=== PATIENT | female | born 1955 | race Caucasian/White ===

== ENCOUNTER 2020-08-29 15:34 | Outpatient (REF) | payer MEDICARE, OTHER, SELFPAY ==
[2020-08-29 18:34] LABS: Vitamin D 25-OH Total 49.6 ng/mL (>30)
== END 2020-08-29 15:35 | disposition home or self-care (01) ==
LOC: HO.MANLDS 15:34
PROVIDERS: PCP Physician Assistant; Visit Provider Physician Assistant
DX: E55.9 Vitamin D deficiency, unspecified (principal)
CPT/HCPCS: 82306

== ENCOUNTER 2021-03-27 08:05 | Outpatient (REF) | payer MEDICARE, OTHER, SELFPAY ==
[2021-03-27 11:32] LABS: MANUAL DIFF FLAG NO
[2021-03-27 11:56] LABS: Basophils Percent Auto 0.7 % (0-2); Eosinophils Absolute Auto 0.1 X10*3/uL (0.0-0.4); Eosinophils Percent Auto 1.8 % (0-4); Hematocrit 45.7 % (37-47); Hemoglobin 14.8 g/dl (12.0-16.0); Imm Gran Abs Auto 0.01 X10*3/uL (0.00-0.03); Imm Gran Pct Auto 0.2 % (0.0-0.4); Lymphocytes Absolute Auto 2.7 X10*3/uL (1.2-4.9); Lymphocytes Percent Auto 44.7 % (20-40); Mean Corpuscular HGB Conc 32.4 g/dl (31.0-35.0); Mean Corpuscular Hemoglobin 27.8 pg (27.0-33.0); Mean Corpuscular Volume 85.7 fL (80-98); Mean Platelet Volume 10.2 fL (9.4-12.3); Monocytes Absolute Auto 0.4 X10*3/uL (0.1-1.2); Monocytes Percent Auto 6.3 % (2-11); Neutrophils Absolute Auto 2.8 X10*3/uL (2.0-8.3); Neutrophils Percent Auto 46.3 % (45-73); Platelet Count 250 X10*3/uL (160-400); Red Blood Count 5.33 X10*6/uL (4.20-5.50); Red Cell Distribution Width 13.6 % (11.0-16.0); White Blood Count 6.1 X10*3/uL (4.8-10.8)
[2021-03-27 12:15] LABS: Alanine Aminotransferase 25 U/L (0-31); Albumin Level 4.4 g/dL (3.5-5.0); Alkaline Phosphatase 71 U/L (39-117); Anion Gap 12 (12-20); Aspartate Amino Transferase 28 U/L (5-31); Bilirubin Total 0.4 mg/dL (0.0-1.0); Blood Urea Nitrogen 11 mg/dL (9-16); Calcium 9.2 mg/dL (8.4-10.2); Carbon Dioxide 26 mmol/L (22-29); Chloride 105 mmol/L (96-108); Cholesterol 160 mg/dL; Estimated Glomerular Filt Rate > 60; Glucose Fasting 88 mg/dL (60-99); HDL Cholesterol 51 mg/dL; LDL Cholesterol Calculated 81 mg/dl; Potassium 4.2 mmol/L (3.3-5.1); Sodium 139 mmol/L (135-145); Total Protein 6.8 g/dL (6.5-8.0); Triglycerides 143 mg/dL
[2021-03-27 12:31] LABS: Estimated Average Glucose 103 mg/dL; Hemoglobin A1c % 5.2 %
== END 2021-03-27 08:06 | disposition home or self-care (01) ==
LOC: HO.MANLDS 08:05
PROVIDERS: PCP Internal Medicine; Visit Provider Physician Assistant
DX: Z00.00 Encounter for general adult medical examination without abnormal findings (principal); Z13.6 Encounter for screening for cardiovascular disorders
CPT/HCPCS: 36415; 80053; 80061; 83036; 85025

== ENCOUNTER 2021-09-08 09:32 | Outpatient (REF) | payer MEDICARE, OTHER, SELFPAY ==
[2021-09-08 11:08] LABS: MANUAL DIFF FLAG NO
[2021-09-08 11:12] LABS: Basophils Percent Auto 0.6 % (0-2); Eosinophils Absolute Auto 0.2 X10*3/uL (0.0-0.4); Eosinophils Percent Auto 2.8 % (0-4); Hematocrit 43.4 % (37-47); Hemoglobin 14.4 g/dl (12.0-16.0); Imm Gran Abs Auto 0.01 X10*3/uL (0.00-0.03); Imm Gran Pct Auto 0.2 % (0.0-0.4); Lymphocytes Absolute Auto 2.3 X10*3/uL (1.2-4.9); Lymphocytes Percent Auto 42.3 % (20-40); Mean Corpuscular HGB Conc 33.2 g/dl (31.0-35.0); Mean Corpuscular Hemoglobin 28.5 pg (27.0-33.0); Mean Corpuscular Volume 85.9 fL (80-98); Mean Platelet Volume 10.3 fL (9.4-12.3); Monocytes Absolute Auto 0.3 X10*3/uL (0.1-1.2); Neutrophils Absolute Auto 2.6 X10*3/uL (2.0-8.3); Neutrophils Percent Auto 48.1 % (45-73); Platelet Count 249 X10*3/uL (160-400); Red Blood Count 5.05 X10*6/uL (4.20-5.50); Red Cell Distribution Width 13.3 % (11.0-16.0); White Blood Count 5.3 X10*3/uL (4.8-10.8)
[2021-09-08 11:23] LABS: Estimated Average Glucose 100 mg/dL; Hemoglobin A1c % 5.1 %
[2021-09-08 11:42] LABS: Alanine Aminotransferase 29 U/L (0-31); Albumin Level 4.3 g/dL (3.5-5.0); Alkaline Phosphatase 80 U/L (39-117); Anion Gap 12 (12-20); Aspartate Amino Transferase 34 U/L (5-31); Bilirubin Total 0.6 mg/dL (0.0-1.0); Blood Urea Nitrogen 8 mg/dL (9-16); Calcium 9.4 mg/dL (8.4-10.2); Carbon Dioxide 26 mmol/L (22-29); Chloride 106 mmol/L (96-108); Cholesterol 166 mg/dL; Estimated Glomerular Filt Rate > 60; Glucose Fasting 84 mg/dL (60-99); HDL Cholesterol 43 mg/dL; LDL Cholesterol Calculated 86 mg/dl; Potassium 4.3 mmol/L (3.3-5.1); Sodium 140 mmol/L (135-145); Total Protein 6.7 g/dL (6.5-8.0); Triglycerides 189 mg/dL
== END 2021-09-08 09:33 | disposition home or self-care (01) ==
LOC: HO.MANLDS 09:32
PROVIDERS: PCP Physician Assistant; Visit Provider Physician Assistant
DX: E78.2 Mixed hyperlipidemia (principal)
CPT/HCPCS: 36415; 80053; 80061; 83036; 85025

== ENCOUNTER 2022-03-09 07:47 | Outpatient (REF) | payer MEDICARE, OTHER, SELFPAY ==
[2022-03-09 10:52] LABS: Imm Gran Abs Auto 0.01 X10*3/uL (0.00-0.03); Imm Gran Pct Auto 0.1 % (0.0-0.4); MANUAL DIFF FLAG SCAN; Mean Corpuscular Volume 85.7 fL (80.0-98.0); Monocytes Percent Auto 6.1 % (2-11); PLT CLUMP 1; Red Cell Distribution Width 13.2 % (11.0-16.0); SCAN SMEAR FLAG 1
[2022-03-09 10:54] LABS: Basophils Percent Auto 0.3 % (0-2); Eosinophils Absolute Auto 0.2 X10*3/uL (0.0-0.4); Eosinophils Percent Auto 2.4 % (0-4); Hematocrit 46.1 % (37.0-47.0); Hemoglobin 14.9 g/dl (12.0-16.0); Lymphocytes Absolute Auto 2.3 X10*3/uL (1.2-4.9); Lymphocytes Percent Auto 30.8 % (20-40); Mean Corpuscular HGB Conc 32.3 g/dl (31.0-35.0); Mean Corpuscular Hemoglobin 27.7 pg (27.0-33.0); Monocytes Absolute Auto 0.5 X10*3/uL (0.1-1.2); Neutrophils Absolute Auto 4.5 x10*3/uL (2.0-8.3); Neutrophils Percent Auto 60.3 % (45-73); Red Blood Count 5.38 X10*6/uL (4.20-5.50)
[2022-03-09 10:59] LABS: Estimated Average Glucose 100 mg/dL; Hemoglobin A1c % 5.1 %
[2022-03-09 11:23] LABS: Alanine Aminotransferase 24 U/L (0-31); Albumin Level 4.2 g/dL (3.5-5.0); Alkaline Phosphatase 81 U/L (39-117); Anion Gap 13 (12-20); Aspartate Amino Transferase 26 U/L (5-31); Bilirubin Total 0.9 mg/dL (0.0-1.0); Blood Urea Nitrogen 9 mg/dL (9-16); Carbon Dioxide 26 mmol/L (22-29); Chloride 105 mmol/L (96-108); Cholesterol 162 mg/dL; Estimated Glomerular Filt Rate > 60; Glucose Fasting 77 mg/dL (60-99); HDL Cholesterol 47 mg/dL; LDL Cholesterol Calculated 85 mg/dl; Potassium 4.1 mmol/L (3.3-5.1); Sodium 140 mmol/L (135-145); Total Protein 6.7 g/dL (6.5-8.0); Triglycerides 152 mg/dL
[2022-03-09 11:28] LABS: Platelet Count 220 X10*3/uL (160-400); SLIDE REVIEW VERIFIED; White Blood Count 7.5 X10*3/uL (4.8-10.8)
== END 2022-03-09 07:48 | disposition home or self-care (01) ==
LOC: HO.MANLDS 07:47
PROVIDERS: PCP Physician Assistant; Visit Provider Physician Assistant
DX: E78.2 Mixed hyperlipidemia (principal)
CPT/HCPCS: 36415; 80053; 80061; 83036; 85025

== ENCOUNTER 2022-09-08 07:39 | Outpatient (REF) | payer MEDICARE, OTHER, SELFPAY ==
[2022-09-08 11:27] LABS: MANUAL DIFF FLAG NO
[2022-09-08 11:38] LABS: Basophils Percent Auto 0.6 % (0-2); Eosinophils Absolute Auto 0.2 X10*3/uL (0.0-0.4); Eosinophils Percent Auto 2.4 % (0-4); Hematocrit 45.8 % (37.0-47.0); Hemoglobin 15.2 g/dl (12.0-16.0); Imm Gran Abs Auto 0.01 X10*3/uL (0.00-0.03); Imm Gran Pct Auto 0.2 % (0.0-0.4); Lymphocytes Absolute Auto 2.6 X10*3/uL (1.2-4.9); Lymphocytes Percent Auto 41.1 % (20-40); Mean Corpuscular HGB Conc 33.2 g/dl (31.0-35.0); Mean Corpuscular Hemoglobin 28.1 pg (27.0-33.0); Mean Corpuscular Volume 84.8 fL (80.0-98.0); Mean Platelet Volume 10.1 fL (9.4-12.3); Monocytes Absolute Auto 0.4 X10*3/uL (0.1-1.2); Monocytes Percent Auto 5.8 % (2-11); Neutrophils Absolute Auto 3.1 x10*3/uL (2.0-8.3); Neutrophils Percent Auto 49.9 % (45-73); Platelet Count 249 X10*3/uL (160-400); Red Cell Distribution Width 13.2 % (11.0-16.0); White Blood Count 6.3 X10*3/uL (4.8-10.8)
[2022-09-08 11:45] LABS: Estimated Average Glucose 103 mg/dL; Hemoglobin A1c % 5.2 %
[2022-09-08 11:52] LABS: Alanine Aminotransferase 28 U/L (0-31); Albumin Level 4.4 g/dL (3.5-5.0); Alkaline Phosphatase 74 U/L (39-117); Anion Gap 14 (12-20); Aspartate Amino Transferase 32 U/L (5-31); Bilirubin Total 0.7 mg/dL (0.0-1.0); Blood Urea Nitrogen 11 mg/dL (9-16); Calcium 9.2 mg/dL (8.4-10.2); Carbon Dioxide 27 mmol/L (22-29); Chloride 103 mmol/L (96-108); Cholesterol 190 mg/dL; Estimated Glomerular Filt Rate > 60; Glucose Random 83 mg/dL (60-115); HDL Cholesterol 53 mg/dL; LDL Cholesterol Calculated 102 mg/dl; Sodium 140 mmol/L (135-145); Triglycerides 177 mg/dL
== END 2022-09-08 07:40 | disposition home or self-care (01) ==
LOC: HO.MANLDS 07:39
PROVIDERS: Visit Provider Physician Assistant
DX: Z13.89 Encounter for screening for other disorder (principal)
CPT/HCPCS: 36415; 80053; 80061; 83036; 85025

== ENCOUNTER → 2022-10-07 07:26 | Outpatient (REF) | payer MEDICARE, SELFPAY ==
--- NOTE | 2022-10-07 07:30 | CA_ITS ---
Transthoracic Echocardiogram Patient (Last, First, Middle): Cindy Matthews T Gender: Female Date of : 1955 Age: 67 Procedure Date: 10/07/2022 Procedure Type: Transthoracic Echocardiogram Location: OP Height: 154.94 cm Weight: 81.19 kg BSA: 1.80 m2 Heart Rate: 73 bpm BP: 120 / 75 mmHg Reconciling Clerk: TUTU Rodriguez MD: Yuliet KOLB Filing Machine Operator: Gonzalez Cm MD Symptoms: R00.2 PALPITATIONS Study Quality: Fair ECG Rhythm: Sinus Conclusions: - 1. Normal measured LV systolic function with LVEF of 55-60% with grade 1 diastolic dysfunction 2. Normal cardiac valvular Doppler 3. No gross pericardial effusion Findings Left Ventricle Normal left ventricular size, thickness, and systolic function. The visually estimated ejection fraction is between 55-60%. Spectral Doppler is indicative of an impaired relaxation filling pattern. E/E prime ratio is <8, consistent with normal filling pressures. Evidence suggests grade I (mild) diastolic dysfunction. Peak GLS is -13.6%, which is reduced. Right Ventricle Normal right ventricular cavity size and systolic function. Atria The left atrium is normal in size. Interatrial shunt cannot be excluded. The right atrium was not well visualized. Aortic Valve The aortic valve structure and function is likely normal. There is no aortic valve stenosis. There is no aortic valve regurgitation. Mitral Valve Likely normal mitral valve structure and function. There is trace mitral valve regurgitation. There is no mitral valve stenosis. Pulmonic Valve The pulmonic valve was not well visualized. Tricuspid Valve Likely normal tricuspid valve structure and function. Tricuspid regurgitation envelope is inadequate for calculation of right ventricular systolic pressure. Normal right atrial pressure. Great Vessels All visible segments of the aorta are normal in size. The pulmonary artery was not well visualized. Venous The inferior vena cava is normal in size and collapses greater than 50% with inspiration. Pericardium/Pleural There is no evidence of pericardial effusion. Prior Study Comparison No prior study available for comparison. Measurements 2D Linear Measurements IVSd: 1.59 0.6-0.9/0.6-1.0 cm LVIDd: 2.66 3.9-5.3/4.2-5.9 cm LVIDd Index: 1.48 2.4-3.2/2.2-3.1 cm/m2 LVIDs: 2.20 2.0-3.6 cm LVPWd: 1.30 0.7-1.1 cm LA Diam: 3.40 2.7-3.8/3.0-4.0 cm LAIDs Index: 1.89 1.5-2.3 cm/m2 LV Mass: 158.22 67-162/88-224 g LV Mass Index: 87.90 43-95/49-115 g/m2 LVOT Diam: 1.80 3.0+(-)1.3 cm 2D Systolic Function EF 4C: 52.00 >55% EF 2C: 58.40 >55% EF BiP: 56.00 >55% Mitral Valve MV Pk E: 0.67 MV PK A: 0.66 MV Decel Time: 262.00 E/A: 1.00 E'Lateral: 8.05 E'Medial: 5.33 E/E' Med: 12.60 E/E' Lat: 8.30 PHT: 77.00 MVA PHT: 2.86 Decel Garvin: 2.55 Aortic Valve AoV Pk Fabrice: 1.16 AoV Mn Fabrice: 0.84 AoV VTI: 0.26 AoV Pk Grad: 5.00 Aov Mn Grad: 3.00 NORAH Cont.VTI: 1.96 LVOT LVOT Pk Fabrice: 1.01 LVOT Mn Fabrice: 0.66 LVOT VTI: 0.20 LVOT Pk Grad: 4.00 LVOT Mn Grad: 2.00 LVOT Diam: 1.80 LVOT Area: 2.54 Diastolic Function MV Pk E: 0.67 MV Pk A: 0.66 E/A: 1.00 E'Medial: 5.33 E/E' Med: 12.60 E' Laterial: 8.05 E/E' Lat: 8.30 Right Ventricle TAPSE (mm): 19.10 TVS' Fabrice: 10.30 Tricuspid Valve RA Press: 3.00 Great Vessels Aorta Sinus of Valsalva: 3.20 2.0-3.5 cm Ao Asc: 2.60 2.1-3.4 cm Pulmonary Valve PV Pk Fabrice: 1.15 Peak PV Grad: 5.00 Updated in Other Vendor System with Status of Final Gonzalez Cm MD electronically signed on 10/08/2022 1:06:41 PM with status of Final
== END ==
LOC: HO.CARD 07:26
PROVIDERS: PCP Internal Medicine; Visit Provider Physician Assistant
DX: R00.2 Palpitations (principal)
CPT/HCPCS: 93306; 93356

== ENCOUNTER 2023-03-15 08:51 | Outpatient (REF) | payer MEDICARE, SELFPAY ==
[2023-03-15 13:27] LABS: Cholesterol 182 mg/dL; HDL Cholesterol 53 mg/dL; LDL Cholesterol Calculated 101 mg/dl; Triglycerides 143 mg/dL
== END 2023-03-15 08:52 | disposition home or self-care (01) ==
LOC: HO.MANLDS 08:51
PROVIDERS: Visit Provider Physician Assistant
DX: E78.2 Mixed hyperlipidemia (principal)
CPT/HCPCS: 36415; 80061

== ENCOUNTER 2023-09-12 07:56 | Outpatient (REF) | payer MEDICARE, SELFPAY ==
[2023-09-12 13:20] LABS: MANUAL DIFF FLAG NO
[2023-09-12 13:42] LABS: Basophils Percent Auto 0.4 % (0-2); Eosinophils Absolute Auto 0.1 X10*3/uL (0.0-0.4); Hematocrit 45.7 % (37.0-47.0); Imm Gran Abs Auto 0.07 X10*3/uL (0.00-0.03); Imm Gran Pct Auto 0.7 % (0.0-0.4); Lymphocytes Absolute Auto 4.6 X10*3/uL (1.2-4.9); Lymphocytes Percent Auto 43.2 % (20-40); Mean Corpuscular HGB Conc 32.8 g/dl (31.0-35.0); Mean Corpuscular Hemoglobin 28.4 pg (27.0-33.0); Mean Corpuscular Volume 86.4 fL (80.0-98.0); Monocytes Absolute Auto 0.8 X10*3/uL (0.1-1.2); Monocytes Percent Auto 7.5 % (2-11); Neutrophils Percent Auto 47.2 % (45-73); Platelet Count 315 X10*3/uL (160-400); Red Blood Count 5.29 X10*6/uL (4.20-5.50); Red Cell Distribution Width 12.7 % (11.0-16.0); White Blood Count 10.7 X10*3/uL (4.8-10.8)
[2023-09-12 14:01] LABS: Cholesterol 138 mg/dL (<200); HDL Cholesterol 46 mg/dL (>40); LDL Cholesterol Calculated 69 mg/dL (<100); Triglycerides 118 mg/dL (<150)
[2023-09-12 14:09] LABS: Alanine Aminotransferase 21 U/L (0-31); Alkaline Phosphatase 65 U/L (39-117); Anion Gap 13 (12-20); Aspartate Amino Transferase 19 U/L (5-31); Bilirubin Total 0.3 mg/dL (0.0-1.0); Blood Urea Nitrogen 14 mg/dL (9-16); Calcium 9.3 mg/dL (8.4-10.2); Carbon Dioxide 28 mmol/L (22-29); Chloride 103 mmol/L (96-108); Estimated Glomerular Filt Rate > 60; Glucose Random 86 mg/dL (60-115); Potassium 4.3 mmol/L (3.3-5.1); Sodium 140 mmol/L (135-145); Total Protein 6.3 g/dL (6.5-8.0)
[2023-09-12 14:27] LABS: Free T4 (Free Thyroxine) 1.02 ng/dL (0.71-1.85)
== END 2023-09-12 07:57 | disposition home or self-care (01) ==
LOC: HO.MANLDS 07:56
PROVIDERS: Visit Provider Physician Assistant
DX: Z00.00 Encounter for general adult medical examination without abnormal findings (principal); E78.2 Mixed hyperlipidemia
CPT/HCPCS: 36415; 80053; 80061; 84439; 84443; 85025

== ENCOUNTER 2024-03-12 07:32 | Outpatient (REF) | payer MEDICARE, SELFPAY ==
[2024-03-12 13:30] LABS: MANUAL DIFF FLAG NO
[2024-03-12 13:59] LABS: Basophils Absolute Auto 0.1 X10*3/uL (0.0-0.2); Basophils Percent Auto 0.8 % (0-2); Eosinophils Absolute Auto 0.1 X10*3/uL (0.0-0.4); Eosinophils Percent Auto 2.3 % (0-4); Hematocrit 46.2 % (37.0-47.0); Hemoglobin 15.2 g/dl (12.0-16.0); Imm Gran Abs Auto 0.01 X10*3/uL (0.00-0.03); Imm Gran Pct Auto 0.2 % (0.0-0.4); Lymphocytes Absolute Auto 2.6 X10*3/uL (1.2-4.9); Mean Corpuscular HGB Conc 32.9 g/dl (31.0-35.0); Mean Corpuscular Hemoglobin 28.3 pg (27.0-33.0); Mean Corpuscular Volume 85.9 fL (80.0-98.0); Mean Platelet Volume 10.4 fL (9.4-12.3); Monocytes Absolute Auto 0.3 X10*3/uL (0.1-1.2); Monocytes Percent Auto 5.7 % (2-11); Neutrophils Absolute Auto 2.9 x10*3/uL (2.0-8.3); Platelet Count 274 X10*3/uL (160-400); Red Blood Count 5.38 X10*6/uL (4.20-5.50); Red Cell Distribution Width 13.4 % (11.0-16.0)
[2024-03-12 14:24] LABS: Alanine Aminotransferase 22 U/L (0-31); Albumin Level 4.3 g/dL (3.5-5.0); Alkaline Phosphatase 67 U/L (39-117); Anion Gap 12 (12-20); Aspartate Amino Transferase 28 U/L (5-31); Bilirubin Total 0.6 mg/dL (0.0-1.0); Blood Urea Nitrogen 8 mg/dL (9-16); Calcium 9.8 mg/dL (8.4-10.2); Carbon Dioxide 27 mmol/L (22-29); Chloride 107 mmol/L (96-108); Cholesterol 160 mg/dL (<200); Estimated Glomerular Filt Rate > 60; Glucose Random 73 mg/dL (60-115); HDL Cholesterol 61 mg/dL (>40); LDL Cholesterol Calculated 84 mg/dL (<100); Potassium 4.2 mmol/L (3.3-5.1); Sodium 142 mmol/L (135-145); Total Protein 7.1 g/dL (6.5-8.0); Triglycerides 77 mg/dL (<150)
[2024-03-12 14:30] LABS: Free T4 (Free Thyroxine) 1.02 ng/dL (0.71-1.85); Thyroid Stimulating Hormone 3.28 uIU/mL (0.32-4.0); Vitamin D 25-OH Total 52.2 ng/mL (>30)
== END 2024-03-12 07:33 | disposition home or self-care (01) ==
LOC: HO.MANLDS 07:32
PROVIDERS: Visit Provider Physician Assistant
DX: Z00.00 Encounter for general adult medical examination without abnormal findings (principal); E78.2 Mixed hyperlipidemia
CPT/HCPCS: 36415; 80053; 80061; 82306; 84439; 84443; 85025

== ENCOUNTER 2024-09-14 08:34 | Outpatient (REF) | payer MEDICARE, SELFPAY ==
[2024-09-14 13:26] LABS: MANUAL DIFF FLAG NO
[2024-09-14 13:31] LABS: Basophils Percent Auto 0.6 % (0-2); Eosinophils Absolute Auto 0.2 X10*3/uL (0.0-0.4); Eosinophils Percent Auto 2.3 % (0-4); Hematocrit 46.5 % (37.0-47.0); Hemoglobin 15.1 g/dl (12.0-16.0); Imm Gran Abs Auto 0.01 X10*3/uL (0.00-0.03); Imm Gran Pct Auto 0.2 % (0.0-0.4); Lymphocytes Absolute Auto 2.8 X10*3/uL (1.2-4.9); Lymphocytes Percent Auto 44.1 % (20-40); Mean Corpuscular HGB Conc 32.5 g/dl (31.0-35.0); Mean Corpuscular Hemoglobin 28.7 pg (27.0-33.0); Mean Corpuscular Volume 88.4 fL (80.0-98.0); Mean Platelet Volume 10.3 fL (9.4-12.3); Monocytes Absolute Auto 0.5 X10*3/uL (0.1-1.2); Monocytes Percent Auto 7.3 % (2-11); Neutrophils Absolute Auto 2.9 x10*3/uL (2.0-8.3); Neutrophils Percent Auto 45.5 % (45-73); Platelet Count 253 X10*3/uL (160-400); Red Blood Count 5.26 X10*6/uL (4.20-5.50); Red Cell Distribution Width 13.2 % (11.0-16.0); White Blood Count 6.4 X10*3/uL (4.8-10.8)
[2024-09-14 14:20] LABS: Alanine Aminotransferase 32 U/L (0-31); Albumin Level 4.3 g/dL (3.5-5.0); Alkaline Phosphatase 73 U/L (39-117); Aspartate Amino Transferase 51 U/L (5-31); Bilirubin Total 0.6 mg/dL (0.0-1.0); Blood Urea Nitrogen 9 mg/dL (9-16); Cholesterol 169 mg/dL (<200); Estimated Glomerular Filt Rate > 60; Glucose Random 81 mg/dL (60-115); HDL Cholesterol 57 mg/dL (>40); LDL Cholesterol Calculated 84 mg/dL (<100); TSH reflex Free T4 2.54 uIU/mL (0.32-4.0); Total Protein 7.2 g/dL (6.5-8.0); Triglycerides 140 mg/dL (<150); Vitamin D 25-OH Total 128.3 ng/mL (>30)
[2024-09-14 14:35] LABS: Anion Gap 11 (12-20); Carbon Dioxide 25 mmol/L (22-29); Chloride 108 mmol/L (96-108); Sodium 140 mmol/L (135-145)
== END 2024-09-14 08:35 | disposition home or self-care (01) ==
LOC: HO.MANLDS 08:34
PROVIDERS: Visit Provider Physician Assistant
DX: Z00.00 Encounter for general adult medical examination without abnormal findings (principal); E78.2 Mixed hyperlipidemia
CPT/HCPCS: 36415; 80053; 80061; 82306; 84443; 85025

== ENCOUNTER 2025-03-19 08:46 | Outpatient (REF) | payer MEDICARE, SELFPAY ==
--- OUTSIDE RECORDS SUMMARY | 2025-03-19 09:15 | XMS_ITS | Data Portability ---
Author Organization [facility] Service Address [address] [place] [address] Assessment Encounter Date Assessment Date Assessment LastModified by Organization Details LastModified Time 09/13/2022 09/13/2022 The patient denies recent falls or recurrent falls. Denies instability, weakness, abnormal gait, or difficulties with movement. The patient wears correct, supportive shoes and is not otherwise severely visually impaired. The patient is full weight bearing and if using the assistance of a cane or walker feels supported and stable with the use of such devices. All medical conditions have been taken into account that may pose a risk for the patient for falls. Home radha, carpets and/or rugs do not pose a challenge for the patient. The patient has been educated about the use of vitamin D supplementation for bone health and prevention of hypotensive episodes that may increase risk for fall. All question and concerns were answered to the patient's satisfaction. [email or web address] Not available 09/13/2022 10:12:39 09/05/2023 09/05/2023 Patient agreed and verbally consents to this audio and video Telehealth appt via a secure platform The patient denies little pleasure in activities they find enjoyable, feeling depressed, difficulties sleeping, feeling tired or having little energy, change in appetite, feeling guilty, overwhelmed or unmotivated. The patient denies suicidal ideation, thoughts of hurting themselves or others. Their mood is appropriate, they show good judgement and clear understanding of the conversation. They are orientated to time, place and person. They are not expressing any concerning thoughts or actions that would need further investigation and treatment for mental health. [email or web address] Not available 09/05/2023 11:36:51 Plan of Treatment Reminders Order Date Submit Date Provider Last Modified By Organization Details Last Modified Time Details Appointments ANNUAL EXAM 2024 01:30P M KENNEDI PERERA Not available Not available Not available Lab None recorded. Referral None recorded. Procedures None recorded. Surgeries None recorded. Imaging CT, coronary calcium score 2022 023 [email or web address] [facility], [address] [facility], [place], [address], 09/20/2023 08:27:34 US, duplex, carotid artery 2021 022 [email or web address] Not available 09/14/2022 08:52:34 US, echocardi ogram 2021 022 [email or web address] Not available 09/14/2022 08:52:34 Medication Orders fluocinon karen 0.05 % topical ointment 2023 ANIA [facility], [address], [place], [place], [id number], 09/24/2024 13:44:40 famotidin e 20 mg tablet 2023 ANIA [facility], [address] [place] [address], [address], [place], [place], [id number], 09/24/2024 13:43:35 budesonid e 32 mcg/actua tion nasal spray 2022 023 ANIA Not available 09/16/2023 14:19:52 codeine 10 mg-guaife nesin 100 mg/5 mL oral liquid 2022 023 [email or web address] 8 Not available 09/16/2023 14:12:54 doxycycli ne hyclate 100 mg capsule 2022 023 [email or web address] 8 Not available 09/16/2023 14:13:04 prednison e 10 mg tablet 2022 023 [email or web address] 8 Not available 09/16/2023 14:13:13 Patient TargetsNo targets recorded. Patient InstructionsNo instructions recorded. Reason for Referral None Reported. Results Created Date Observation Date Name Description Value Unit Range Abnormal Flag Note LastModifiedBy Organization Detail LastModifiedTime 04/26/20 22 04/26/2022 MAMMO , swetha almeida, digit al, bilat eral No observ ation record ed. [email or web address] [facility] (Mammo) [address] [place], [address], 04/27/2022 10:27:29 09/22/20 22 09/22/2022 US, magdalena x, carot id arter y No observ ation record ed. [facility] [address] [facility] [address], [place], [address], 09/24/2022 16:10:18 10/08/20 22 10/07/2022 US, echoc ardio gram No observ ation record ed. [facility] Sched[facility] [address] [place], [address], 10/08/2022 13:58:54 10/26/20 22 10/25/2022 stres s echoc ardio gram with doppl er color flow (PROC ) No observ ation record ed. [facility] [address], [place], [address], 10/26/2022 11:20:55 12/17/19 23 11/25/2022 cecil r monit or No observ ation record ed. ayad Not Available 2022 10:49:24 09/29/20 23 09/29/2023 CT, coron yulisa calci um score No observ ation record ed. [facility] [address] [place], [address], 09/24/2024 13:57:43 09/13/20 24 09/13/2024 US, amador tsamuel No observ ation record ed. [facility] [address] [place], [address], 09/24/2024 13:57:43 09/13/2009/13/2024 MAMMO , diagn ostic , digit al, unila teral No observ ation record ed. [facility] (Breast Center) - Callback Orders Only [address] [place], [address], 09/24/2024 13:57:42 Result Notes None recorded. Problems Name Problem SNOMED Code Status Onset Date Resolution Date Notes Provider Name and Address Organization Details Recorded Time Hyperlip idemia 20326652 Completed 201708/21/2018February LAURA Griffin [address] [place], [address], [facility] 8 14:21:58 Abnormal liver function 39506052 Active 2017 Berenice linton [facility] 0 09:03:10 Reactive airway disease 62229623309 6 Active 2017 Berenice linton [facility] 0 09:03:10 Gastroes ophageal reflux disease 932876990 Completed 201708/21/2018 KENNEDI PERERA [address] [place] [address], [address], [facility] 4 13:41:39 Gastroes ophageal reflux disease without esophagi tis 310968397 Active 2017 Berenice linton [facility] 0 09:03:10 Mixed hyperlip idemia 695015902 Active 2017 Berenice linton [facility] 0 09:03:10 Eczema 23455376 Active 2021 KENNEDI PERERA [address] [place] [address], [address], [facility] 2 10:12:05 Herpes zoster 9685065 Active 2021 KENNEDI PERERA [address] [place] [address], [address], [facility] 2 16:07:04 Lichen sclerosu s 530433028 Active 2021 KENNEDI PERERA [address] [place], [address], [facility] 2 10:17:20 Syncope 468494864 Active 2021 KENNEDI PERERA [address] [place], [address], [facility] 2 10:24:33 Palpitat ions 84631432 Active 2021 KENNEDI PERERA [address] [place] [address], [address], [facility] 2 16:10:53 Syncope and collapse 952793186 Active 2021 KENNEDI PERERA [address] [place] [address], [address], [facility] 2 13:59:19 Upper respirat ory infectio n 21604671 Active 2022 KENNEDI PERERA [address] [place] [address], [address], [facility] 3 11:36:19 Acute sinusiti s 27079825 Active 2022 KENNEDI PERERA [address] [place] [address], [address], [facility] 3 14:18:55 Gastroes ophageal reflux disease 676054585 Active 2023 KENNEDI PERERA [address] [place] [address], [address], [facility] 4 13:41:39 Atrophic vaginiti s 30701234 Active 2023 KENNEDI PERERA [address] [place], [address], [facility] 4 13:43:50 Osteoart hritis 432304404 Active 2023 KENNEDI PERERA [address] [place], [address], [facility] 4 13:45:00 Mass of left breast 14158339345 720188 Active 2024 KENNEDI PERERA [address] [place], [address], [facility] 5 16:44:55 Protein level - finding 418647484 Active 2024 Chandler Darby DO [address] [place], [address], [facility] 5 08:47:26 Problem Notes None recorded. Procedures Surgical History Date Name Laterality Status Provider Name and Address Organization Details Recorded Time 018 cataract surgery completed LAURA Tang [address] [place] [address], [phone], [facility] 01/09/2019 09:40:20 018 cataract surgery completed Sandi LAURA Griffin [address] [place] [address], [address], [facility] 01/09/2019 09:40:23 017 Most Recent Mammogram completed [facility] 01/09/2019 08:18:01 017 Date of Last Pap Smear completed [facility] 01/09/2019 08:17:38 995 biopsy of breast completed LAURA Tang [address] [place] [address], [address], [facility] 07/04/2019 09:36:40 tonsillectomy completed Sandi LAURA Weinberg [address] [place] [address], [address], [facility] 01/09/2019 09:40:38 Cholecystectomy completed LAURA Magaña [address] [place] [address], [address], [facility] 01/09/2019 09:40:46 Hysteroscopy biopsy completed February LAURA Griffin [address] [facility], [place], [address], [place] [facility] 07/04/2019 09:36:11 Imaging Results Imaging Date Name Status LastModified by Organization Details LastModified Time 04/26/2022 MAMMO, screening, digital, bilateral completed [email or web address] [facility] (Mammo) [address] [place], [address], 04/27/2022 10:27:29 09/22/2022 US, duplex, carotid artery completed [facility] [address] [facility] [address], [place], [address], 09/24/2022 16:10:18 10/07/2022 US, echocardiogram completed [facility] [address] [place], [address], 10/08/2022 13:58:54 10/25/2022 stress echocardiogram with doppler color flow (PROC) completed [facility] [address], [place], [address], 10/26/2022 11:20:55 11/25/2022 holter monitor completed [facility] not available 12/17/2022 10:49:24 09/29/2023 CT, coronary calcium score completed [facility] [address] [place], [address], 09/24/2024 13:57:43 09/13/2024 US, breast, unilateral completed [facility] [address] [place], [address], 09/24/2024 13:57:43 09/13/2024 MAMMO, diagnostic, digital, unilateral completed [facility] ([facility]) - Callback Orders Only [address] [place], [address], 09/24/2024 13:57:42 Procedure Notes None recorded. Medical Equipment None Reported. Allergies Allergen ID Allergen Name Allergen Category Reaction Reaction Severity Criticality Documentation Date Start Date Code Code System Note Provider Name and Address Organization Details Recorded Time 2126 Substance with sulfonami de structure and antibacte rial mechanism of action (substanc e) medicatio n Not available Not available Not available 07/03/2018 58406 8003 SNOMED Berenice Anabelle linton [place] [facility] 8 16:06:19 Medications Name Sig Start Date Stop Date Status Note LastModified by Organization Details LastModified Time amoxicillin 500 mg capsule 07/04 completed Not Available Not Available Not Available budesonide 32 mcg/actuati on nasal spray INSTILL 1 SPRAY INTO THE NOSTRILS FOR 30 DAYS active Not Available Not Available No t Available atorvastati n 80 mg tablet TAKE 1 TABLET DAILY 01/09 completed Not Available Not Available Not Available prednisone 10 mg tablet TAKE 5 TABLETS BY MOUTH DAILY FOR 2 DAYS THEN 4 TABLETS FOR 2 DAYS THEN 3 TABLETS FOR 2 DAYS THEN 2 TABLETS FOR 2 DAYS THEN 1 TABLET FOR 2 DAYS 09/16 completed Not Available Not Available Not Available doxycycline hyclate 100 mg capsule TAKE 1 CAPSULE BY MOUTH TWICE DAILY FOR 10 DAYS 09/16 completed Not Available Not Available Not Available valacyclovi r 1 gram tablet TAKE 1 TABLET BY MOUTH EVERY 8 HOURS FOR 7 DAYS 09/13 completed Not Available Not Available Not Available prochlorper azine maleate 5 mg tablet TAKE 1 TABLET BY MOUTH EVERY 6 HOURS FOR 2 DAYS NEEDED 09/16 completed Not Available Not Available Not Available prednisone 20 mg tablet 06/30 completed Not Available Not Available Not Available fluocinonid e 0.05 % topical ointment APPLY TO THE AFFECTED AREA(S) BY TOPICAL ROUTE 2 TIMES PER DAY active Not Available Not Available No t Available prochlorper azine maleate 10 mg tablet 07/04 completed Not Available Not Available Not Available oxycodone-a cetaminophe n 5 mg-325 mg tablet TK 1 T PO Q 6 H PRN P 01/23 completed Not Available Not Available Not Available famotidine 20 mg tablet Take 1 tablet twice a day by oral route as needed for 90 days. active Not Available Not Available No t Available gentamicin 0.3 % eye drops 07/04 completed Not Available Not Available Not Available betamethaso ne, augmented 0.05 % topical ointment 09/16 completed Not Available Not Available Not Available codeine 10 mg-guaifene sin 100 mg/5 mL oral liquid TAKE 10 ML BY MOUTH EVERY 4 HOURS 09/16 completed Not Available Not Available Not Available methylpredn isolone 4 mg tablets in a dose pack FOLLOW PACKAGE DIRECTION S 09/13 completed Not Available Not Available Not Available rosuvastati n 40 mg tablet TAKE 1 TABLET BY MOUTH DAILY active Not Available Not Available No t Available calcium daily active Not Available Not Avail able Not Available Fish Oil 1200mg take two capsules once a day active Not Available Not Available No t Available Prilosec OTC Take one tablet once a day active Not Available Not Available No t Available cholecalcif tyra (vitamin D3) 1,250 mcg (50,000 unit) capsule Take 1 capsule every week by oral route for 30 days. active Not Available Not Available No t Available Prevnar 13 (PF) 0.5 mL intramuscul ar syringe ADM 0.5ML IM UTD 09/13 completed Not Available Not Available Not Available Allergy Take one tablet once a day active Not Available Not Available No t Available Afluria (PF) 45 mcg(15 mcg x 3)/0.5 mL intramuscul ar syringe 07/04 completed Not Available Not Available Not Available Shingrix (PF) 50 mcg/0.5 mL intramuscul ar suspension, kit ADM 0.5ML IM UTD 09/13 completed Not Available Not Available Not Available Fluarix Quad (PF) 60 mcg (15 mcg x 4)/0.5 mL IM syringe 07/04 completed Not Available Not Available Not Available Fluarix Quad (PF) 60 mcg (15 mcg x 4)/0.5 mL IM syringe 01/23 completed Not Available Not Available Not Available Fluzone High-Dose Quad (PF) 240 mcg/0.7 mL IM syringe ADM 0.7ML IM UTD 01/23 completed Not Available Not Available Not Available Vitals Date Recorded Body height Body mass index (BMI) Body weight Heart rate Oxygen saturation Oxygen saturation in Arterial blood by Pulse oximetry Systolic blood pressure Diastolic blood pressure Provider Name and Address Organization Details Last Updated DateTime 2 153.04 cm 36.1 kg/m2 90772.2 6 g 70 /min 98 % 98 % 130 mm[Hg] 70 mm[Hg] KENNEDI PERERA [address] [place], [address], [facility] Internal [facility] 2 10:02:24 Date Recorded Body height Body mass index (BMI) Body weight Oxygen saturation Oxygen saturation in Arterial blood by Pulse oximetry Heart rate Systolic blood pressure Diastolic blood pressure Provider Name and Address Organization Details Last Updated DateTime 2 153.04 cm 34.9 kg/m2 53552.6 3 g 99 % 99 % 78 /min 120 mm[Hg] 70 mm[Hg] Ana Maria Nguyen [facility] 2 09:59:25 Date Recorded Body height Body mass index (BMI) Body weight Heart rate Oxygen saturation Oxygen saturation in Arterial blood by Pulse oximetry Systolic blood pressure Diastolic blood pressure Provider Name and Address Organization Details Last Updated DateTime 3 153.04 cm 35.3 kg/m2 03752.6 1 g 68 /min 99 % 99 % 120 mm[Hg] 68 mm[Hg] Michelle Loving [facility] 3 14:11:22 Date Recorded Body height Body mass index (BMI) Body weight Heart rate Oxygen saturation Oxygen saturation in Arterial blood by Pulse oximetry Systolic blood pressure Diastolic blood pressure Provider Name and Address Organization Details Last Updated DateTime 4 153.04 cm 35.4 kg/m2 83647.4 g 70 /min 98 % 98 % 118 mm[Hg] 74 mm[Hg] Mackenzie Thien [facility] 4 13:36:48 Social History Question Answer Notes LastModified by Organizat ion Details LastModified Time Tobacco Smoking Status Former Smoker Berenice linton [facility] 07/04/2018 09:39:27 Do You Or Have You Ever Used E-cigarettes Or Vape? Never Used Electronic Cigarettes [email or web address] Information not available 03/15/2022 What Was The Date Of Your Most Recent Tobacco Screening? 09/24/2024 [email or web address] Information not available 09/24/2024 Do You Or Have You Ever Used Smokeless Tobacco? Never Used Smokeless Tobacco [email or web address] Information not available 03/15/2022 How Many Years Have You Smoked Tobacco? 7 [email or web address] Information not available 07/04/2019 Do You Or Have You Ever Used Any Other Forms Of Tobacco Or Nicotine? No [email or web address] Information not available 03/15/2022 Sex: Unknown Functional Status None recorded. Mental Status None recorded. Family History Relationship Description Onset Age of this Age Resolved Age Notes LastModified by Organization Details LastModified Time Mother Malignant tumor of colon [email or web address] Not available 2023 13:26:09 Maternal Grandmother Malignant neoplasm of bone [email or web address] Not available 2023 13:26:09 Maternal Grandmother Myocardial infarction [email or web address] Not available 06/21 09:37:06 Father Cerebrovascu lar accident [email or web address] Not available 09:41:41 Father Myocardial infarction [email or web address] Not available 12/22 09:41:47 Paternal Grandfather Myocardial infarction [email or web address] Not available 06/21 09:36:56 Maternal Grandfather Leukemia [email or web address] Not available 02/2024 13:26:09 Sister Multiple sclerosis [email or web address] Not available 2019 09:46:35 Sister Multiple sclerosis [email or web address] Not available 2019 09:46:35 Sister Disorder of thyroid gland [email or web address] Not available 2019 09:46:35 Sister Malignant melanoma [email or web address] Not available 2023 13:26:09 Sister Malignant melanoma Not available 2023 13:26:09 Brother Parkinson's disease 59 [email or web address] Not available 2023 13:26:09 Medical History Condition Response Coronary Artery Disease N Gout N Other N Kidney Stones N Blood Diseases N Blood Transfusion N Breast Cancer N COPD N Depression N Lung Disease N Defects or Inherited Disease N Anxiety Disorder N Muscle, Joint, or Bone Problems N Obesity N Vision or Eye Problems N Arthritis N Polyps N Infertility N Mental Disorder N Cancer N Varicosities N Stroke N Endometriosis N Bladder or Kidney Problems N High Cholesterol N Liver Disease N Headaches N Fibromyalgia N Kidney Disease N Allergies/Hayfever N Heart Problems N Hospitalizations N Thyroid Problems N GI Problems N Eating Disorder N Skin Problems N Anemia N MRSA exposure N Constipation N Mental Illness N Diabetes N Ovarian Cancer N Seizures/Epilepsy N Tuberculosis N Congestive Heart Failure (CHF) N Eczema N Abuse/Domestic Violence N Diverticulitis N Asthma N Reflux/GERD N Hepatitis N Heart Disease N Pulmonary Embolism N Hypertension N Chicken Pox N Autism Spectrum Disorder (ASD) N Osteoporosis N Gynecological History Statement/Question Response If Post Menopausal, Age at Menopause 41 Date of Last Pap Smear 08/12/2017 Most Recent Mammogram 09/06/2017 Age at Menarche 14 Obstetrics History GPAL:G 1 P 1 0 1 0 Type Value Full Term 1 Spontaneous 1 Total 1 Immunizations Vaccine Type Date Status Note Provider Nam e and Address Organization Details Recorded Time COVID-19, mRNA, LNP-S, PF, 100 mcg/0.5mL dose or 50 mcg/0.25mL dose 1 completed Ana Maria linton [facility] 09/13/2022 08:04:44 COVID-19, mRNA, LNP-S, PF, 100 mcg/0.5mL dose or 50 mcg/0.25mL dose 2 completed Ana Maria linton [facility] 09/13/2022 08:04:51 zoster, unspecified formulation 0 completed Ana Maria linton [facility] 09/13/2022 08:05:12 Influenza, split virus, quadrivalent, preservative 1 completed Ana Maria linton [facility] 09/13/2022 08:05:26 Influenza, split virus, quadrivalent, preservative 2 completed Ana Maria linton [facility] 09/13/2022 08:05:35 pneumococcal polysaccharide PPV23 5 completed Ana Maria linton [facility] 09/13/2022 08:05:49 Influenza, split virus, quadrivalent, preservative 8 completed Claire Gencarelle shaila [facility] 03/15/2022 10:00:03 Influenza, split virus, quadrivalent, preservative 9 completed Claire Gencarelle shaila [facility] 03/15/2022 10:00:03 Tdap 4 completed Berenice Anabelle shaila [facility] 2020 09:03:14 Influenza, split virus, quadrivalent, preservative 7 completed Claire Gencarelle shaila [facility] 03/15/2022 10:00:03 COVID-19, mRNA, LNP-S, PF, 100 mcg/0.5mL dose or 50 mcg/0.25mL dose 1 completed Claire Gencarelle shaila [facility] 03/15/2022 10:00:03 COVID-19, mRNA, LNP-S, PF, 100 mcg/0.5mL dose or 50 mcg/0.25mL dose 1 completed Claire Gencarelle shaila [facility] 03/15/2022 10:00:03 Past Encounters Encounter ID Performer Location Encounter Start Date Encounter Closed Date Diagnosis/Indication Diagnosis SNOMED-CT Code Diagnosis ICD10 Code Diagnosis Note [id number] February Gaby [facility] [address] [facility],[place] [address] 07/04/2018 09:29:52 07/04/2018 11:47:21 Liver function tests outside reference range 060606434 R79.89 fatty liver vs meds Mixed hyperlipidemia 267 477850 E78.2 not terribly high, but given she is on max dose of atorvastat in, will change to crestor. she would like to use up her atorvastat in which she has a 90 day supply of and try and work on diet and exercise, then change to crestor thereafter . Body mass index 30+ - obesity 574606306 Z68.39 diet, exercise weight loss f.u 6 months [id number] Gaby [facility] [address] [facility], [place] [address] 08/21/2018 14:04:09 08/21/2018 14:39:45 Gastroesophageal reflux disease without esophagitis 414539607 K21.9 STABLE QUIET Mixed hyperlipidemia 267 285449 E78.2 not terribly high, but given she is on max dose of atorvastat in, will change to crestor. she would like to use up her atorvastat in which she has a 90 day supply of and try and work on diet and exercise, then change to crestor thereafter . Impacted cerumen 2563752 6 H61.23 resolved at time of visit. no irrigation required [id number] [facility] [address] [facility], [place] [address] 01/09/2019 09:12:46 01/09/2019 13:34:30 Adult health examination 582622413 Z00.01 labs reviewed all normla Active or passive immunization 964535184 Z23 discussed shingles vaccine Actinic keratosis 007 L57.0 [id number] [facility] [address] [facility], [place] [address] 07/04/2019 09:24:11 07/04/2019 09:55:30 Gastroesophageal reflux disease without esophagitis 567551629 K21.9 STABLE QUIET Mixed hyperlipidemia 267 952668 E78.2 much better on crestor Abnormal l iver function 92854924 K76.89 quiet Reactive a irway disease 1889695786 06 J45.909 Adult heal th examination 769488754 Z00.01 labs for next visit Vitamin D deficiency 347 67717 E55.9 [id number] [facility] [address] [facility], [place] [place] [address] 2020 08:55:14 2020 09:38:05 Adult health examination 270556494 Z00.01 HCP - mounika daughter adria morillo will have pelvic exam with obgyn WILL SEE DERM Active or passive immunization [id number] Z23 on a list for shingles vax has had one pneumovax in 2014 will do prev, then repeat pneumovax 6-12 mos after that Decreased estrogen level 662639453 E28.39 Family his tory of Thyroid disorder 351676583 Z83.49 Hyperlipidemia 75474566 E78.5 Body mass index 30+ - obesity 118125222 Z68.38 diet, exercise weight loss f.u 6 months [id number] KENNEDI PERERA [facility] [address] [facility], [place] [address] 06/30/2020 09:44:16 06/30/2020 10:12:32 Gastroesophageal reflux disease without esophagitis 087733381 K21.9 well controlled on prilosec Mixed hyperlipidemia 267 992031 E78.2 doing well on statin, cholestero l looked good, no side effects Abnormal l iver function 02932715 K76.89 labs looked good, will continue to monitor every 6 months Reactive a irway disease [id number] 06 J45.909 has been good, stable will let me know if she needs an inhaler Vitamin D deficiency 347 30403 E55.9 will check in 6 months [id number] KENNEDI PERERA [facility] [address] [facility], [place] [address] 01/23/2021 15:20:36 01/23/2021 15:54:35 Active or passive immunization [id number] Z23 patient informed about her vaccines, just due Adult heal th examination 196383995 Z00.00 BP fine today Screening for cardiovascular system disease 184407318 Z13.6 will fu with lab work Ankle pain 495457246 M25 .571 [id number] KENNEDI PERERA [facility] [address] [facility], [place] [address] 03/15/2022 09:55:56 03/15/2022 10:27:57 Eczema 07422781 L20.89 stable Abnormal l iver function 09420776 K76.89 labs looked good, will continue to monitor every 6 months Mixed hyperlipidemia 267 100581 E78.2 doing well on statin, cholestero l looked good, no side effects [id number] KENNEDI PERERA [facility] [address] [facility], [place] [address] 09/13/2022 09:50:59 09/13/2022 12:10:59 Active or passive immunization [id number] Z23 patient informed about her vaccines, just due Adult heal th examination 352789828 Z00.00 BP fine today Syncope 599099933 R55 will fu with patient [id number] KENNEDI PERERA [facility] [address] [facility] [address] [address] 09/05/2023 09:27:41 09/06/2023 13:47:31 Upper respiratory infection 26219305 J00 will start on medication [id number] KENNEDI PERERA [facility] [address] [facility] [address],[place] [address] 09/16/2023 14:06:48 09/16/2023 16:43:30 Acute sinusitis 88437580 J01.01 start on nasal spray Adult heal th examination 052200303 Z00.00 BP fine today Family his tory of Cardiovascular disease 369376418 Z82.49 sees cardiology [id number] KENNEDI PERERA [facility] [address] [facility] [address] [place] [address] 09/24/2024 13:26:01 09/24/2024 14:30:15 Active or passive immunization 350829553 Z23 needs pneumonia Adult heal th examination 729330360 Z00.00 BP fine today Depression screening 171 579535 Z13.31 SCREENING NEGATIVE Gastroesop hageal reflux disease 751805310 K21.9 will set up with famotidine per GI Atrophic vaginitis 04058 000 N95.2 restart this for the discomfort Osteoarthritis 808923329 M15.0 stable Health Concerns Section Related Observation LastModified by Organization Detai ls LastModified Time None Recorded Concern Status LastModified by Organization Details LastModified Time None Recorded Advance Directives Directive None Recorded Payers Encounter Date Sequence Insurance Name Policy Number Policy Pryor Covered Member ID Pryor Member ID Guarantor Name 03/15/2022 1 [facility] (MEDICARE REPLACEMENT/A DVANTAGE - PPO) [id number] Cindy Matthews [id number] Cindy Delongose 09/13/2022 1 [facility] (MEDICARE REPLACEMENT/A DVANTAGE - PPO) [id number] Cindy Ferreira [place] [id number] Cindy Ferreira Cassie 09/05/2023 1 [facility] (MEDICARE REPLACEMENT/A DVANTAGE - PPO) [id number] Cindy Ferreira [place] [id number] Cindy Ferreira Cassie 09/16/2023 1 [facility] (MEDICARE REPLACEMENT/A DVANTAGE - PPO) [id number] Cindy Matthews [id number] Cindy Matthews 09/24/2024 1 [facility] (MEDICARE REPLACEMENT/A DVANTAGE - PPO) [id number] Cindy Matthews [id number] Cindy Matthews Notes Date Note Type Note Provider Name a nd Address Organization Details Recorded Time 2 text/html labwork f/u the patient is doing wellreviewed labs with patienther labs are appropriate, cholesterol is excellent, will continue medication as directed patient retired, now working out and hiking is down from 206 to 186 which is excellent her BMI is also down does have a rash on her inner thigh, history of eczema, dry itchy skinhas topical steriod cream at home, can use on that as well most likely related to chaffingswitched to biker shorts which will help mitigate some of the chaffing when she is hiking keep area dry and clean will fu in Jul for physical KENNEDI PERERA [address] [place] [address], [id number] 03/15/2022 10:13:05 2 text/html Annual WellnessReported bypatient.Diet and Nutrition:healthy diet; discussed vitamin and supplement use; discussed portion control; discussed maintaining calcium balance; discussed diet improvement Fracture Risk:no history of fractures; no recent explained fracture; no sudden unexplained fractures; no previous musculoskeletal injuries Physical Activity:exercises on a regular basis; recent increase in physical activity; good physical condition; discussed weightbearing activities; discussed exercise habits Additional Lifestyle Factors:no tobacco use; drinks alcohol (mild-moderate) Depression Risk:never feels sad, empty, or tearful; no loss of interest in activities; no significant changes in weight; no sleep disturbances or insomnia; no agitation; no loss of energy; no feelings of worthlessness or guilt; no thoughts of suicide; no history of depression; no history of mood disorders Hearing:no loss of hearing Vision:no vision problems the patient still has loss of taste and smell from COVIDgiven typical course for this lichen sclerosis of the inner thigh (saw derm, given topical)will f/u with them scheduled for her MM did her BW > was all wnl KENNEDI PERERA [address] [place], [address], [facility] 09/13/2022 10:51:31 3 text/html c/o congestion, acute bronchitis telemed phone callpatient consents to phone call the patient has been sick for 14 daysno improvement with OTC medshas cough, congestion, and chest tightness COVID-19 negative three separate testing denies fever, chills, body aches KENNEDI PERERA [address] [place], [address], [facility] 09/05/2023 11:41:16 3 text/html Annual WellnessReported bypatient.Diet and Nutrition:healthy diet; discussed vitamin and supplement use; discussed portion control; discussed maintaining calcium balance; discussed diet improvement Fracture Risk:no history of fractures; no recent explained fracture; no sudden unexplained fractures; no previous musculoskeletal injuries Physical Activity:exercises on a regular basis; recent increase in physical activity; good physical condition; discussed weightbearing activities; discussed exercise habits Additional Lifestyle Factors:no tobacco use; drinks alcohol (mild-moderate) Depression Risk:never feels sad, empty, or tearful; no loss of interest in activities; no significant changes in weight; no sleep disturbances or insomnia; no agitation; no loss of energy; no feelings of worthlessness or guilt; no thoughts of suicide; no history of depression; no history of mood disorders KENNEDI PERERA [address] [place], [address], [facility] 09/16/2023 14:30:30 4 text/html Annual WellnessReported bypatient.Diet and Nutrition:healthy diet; discussed vitamin and supplement use; discussed portion control; discussed maintaining calcium balance; discussed diet improvement Fracture Risk:no history of fractures; no recent explained fracture; no sudden unexplained fractures; no previous musculoskeletal injuries Physical Activity:exercises on a regular basis; recent increase in physical activity; good physical condition Additional Lifestyle Factors:no tobacco use; no alcohol intake; stopped drinking alcohol Depression Risk:never feels sad, empty, or tearful; no loss of interest in activities; no significant changes in weight; no sleep disturbances or insomnia; no agitation; no loss of energy; no feelings of worthlessness or guilt; no thoughts of suicide; no history of depression; no history of mood disorders Hearing:no loss of hearing Vision:no vision problems the patient is doing wellreviewed her list the patient has OA pain, knees and hip otherwise stabledoes not stick around refilled the fluocinonide for herstart on famotidine for PRN GERD symptoms with prilosec the patient reports that otherwise she is doing wellno new issues KENNEDI PERERA [address] [place] [address], [phone], [facility] 09/24/2024 13:58:48 OBGyn Episode No OBEpisode recorded.
[2025-03-19 13:41] LABS: Cholesterol 160 mg/dL (<200); HDL Cholesterol 52 mg/dL (>40); Iron 65 mcg/dL (30-160); LDL Cholesterol Calculated 87 mg/dL (<100); Percent Iron Saturation 23 % (15-50); Total Iron Binding Capacity 281 mcg/dL (228-428); Triglycerides 105 mg/dL (<150); Unsaturated Iron Binding 216 ug/dL
[2025-03-19 13:57] LABS: Ferritin 84 ng/mL (10-250)
== END 2025-03-19 08:47 | disposition home or self-care (01) ==
LOC: HO.MANLDS 08:46
PROVIDERS: Visit Provider Internal Medicine
DX: E78.2 Mixed hyperlipidemia (principal); R79.89 Other specified abnormal findings of blood chemistry
CPT/HCPCS: 36415; 80061; 82728; 83540